=== PATIENT | female | born 1950 | race Caucasian/White ===

== ENCOUNTER → 2016-12-07 | Outpatient (CLI) | payer MEDICARE, BC ==
--- NOTE | 2016-12-07 11:54 | MM ---
Reason for exam: screening (asymptomatic). Last mammogram was performed 1 year and 11 months ago. History: Patient is postmenopausal. Took hormonal contraceptives for 10 years. Physical Findings: A clinical breast exam by your physician is recommended on an annual basis and results should be correlated with mammographic findings. MG Screening Mammo w CAD Bilateral CC and MLO view(s) were taken. Prior study comparison: December 31, 2014, bilateral MG screening mammo w CAD. January 15, 2013, bilateral digital screening mammo w/CAD. The breast tissue is almost entirely fat. Asymmetric breast tissue in the left MLO view only. This finding is changed when compared with previous exams. ASSESSMENT: Incomplete: need additional imaging evaluation, BI-RAD 0 RECOMMENDATION: Special view mammogram of the left breast. If lesion persists on supplemental views, image directed ultrasound is recommended. [facility] will attempt to contact patient to return for supplemental views and ultrasound if indicated.
== END | disposition home or self-care (01) ==
LOC: RADMAMWWP 10:41
PROVIDERS: ATTEND Obstetrics & Gynecology
DX: Z12.31 Encounter for screening mammogram for malignant neoplasm of breast (principal)

== ENCOUNTER → 2016-12-17 | Outpatient (CLI) | payer MEDICARE, BC ==
--- NOTE | 2016-12-17 14:34 | MM ---
Reason for exam: additional evaluation requested from abnormal screening. Last mammogram was performed less than 1 month ago. History: Patient is postmenopausal. Took hormonal contraceptives for 10 years. Physical Findings: Nurse did not find any significant physical abnormalities on exam. MG Work Up Mamm w CAD LT ML, spot compression CC, and spot compression MLO view(s) were taken of the left breast. Prior study comparison: December 07, 2016, bilateral MG screening mammo w CAD. December 31, 2014, bilateral MG screening mammo w CAD. The breast tissue is almost entirely fat. There is no discrete abnormality including area of concern. No significant new findings when compared with previous films. These results were verbally communicated with the patient and result sheet given to the patient on 12/17/16. ASSESSMENT: Benign, BI-RAD 2 RECOMMENDATION: Routine screening mammogram of both breasts in 1 year.
== END | disposition home or self-care (01) ==
LOC: RADMAMWWP 13:26
PROVIDERS: ATTEND Obstetrics & Gynecology
DX: R92.8 Other abnormal and inconclusive findings on diagnostic imaging of breast (principal)

== ENCOUNTER → 2019-04-03 | Outpatient (CLI) | payer MEDICARE ==
--- NOTE | 2019-04-04 12:04 | MM ---
Reason for exam: screening (asymptomatic). Last mammogram was performed 2 years and 3 months ago. History: Patient is postmenopausal. Took hormonal contraceptives for 10 years. Physical Findings: A clinical breast exam by your physician is recommended on an annual basis and results should be correlated with mammographic findings. MG Screening Mammo w CAD Bilateral CC and MLO view(s) were taken. Prior study comparison: December 17, 2016, left breast MG work up mamm w CAD LT. December 07, 2016, bilateral MG screening mammo w CAD. There are scattered fibroglandular densities. There is no discrete abnormality. ASSESSMENT: Negative, BI-RAD 1 RECOMMENDATION: Routine screening mammogram of both breasts in 1 year.
== END | disposition home or self-care (01) ==
LOC: RADMAMWWP 09:47
PROVIDERS: ATTEND Obstetrics & Gynecology
DX: Z12.31 Encounter for screening mammogram for malignant neoplasm of breast (principal)
CPT/HCPCS: 77067

== ENCOUNTER 2020-01-01 08:05 | Day surgery (SDC) | payer MEDICARE ==
[~2020-01-01 08:05] MED LIST: LACTATED RINGERS 1,000 ML IV SCH
[2020-01-01 08:34] VITALS: TEMP 98.3
[2020-01-01] MEDS ORDERED: LIDOCAINE 1% (10MG/ML) FOR IV START INTRADERMA ONE (08:35)
[2020-01-01] MEDS ORDERED: PROPOFOL 10 MG/ML 20 ML VIAL IV ONE (09:05)
--- NOTE | 2020-01-01 09:07 | P.GSHP ---
History of Present Illness H&P Date: 01/01/20 Chief Complaint: Colon cancer screening Patient here today for colonoscopy. Last colonoscopy 10 years ago. No bowel complaints. No family history of colon cancer. Past Medical History Past Medical History: Hyperlipidemia, Hypertension, Osteoarthritis (OA), Syncope Additional Past Medical History / Comment(s): RECENTLY HAVING INJECTIONS IN HER RIGHT KNEE (KARADIMAS). History of Any Multi-Drug Resistant Organisms: None Reported Past Surgical History: Section, Tubal Ligation Past Psychological History: No Psychological Hx Reported Smoking Status: Never smoker Past Alcohol Use History: None Reported Past Drug Use History: None Reported Medications and Allergies Home Medications Medication Instructions Recorded Confirmed Type Albuterol Inhaler (Mhu) [Ventolin 1 - 2 puff INHALATION Q4-6H PRN #1 12/14/13 01/01/20 Rx Hfa Inhaler (Mhu)] inhaler Loratadine [Claritin] 10 mg PO DAILY 12/14/13 01/01/20 History [place] Oil/Beryl-3 Fatty Acids 1 each PO DAILY 12/14/13 01/01/20 History [Fish Oil 500 mg Softgel] Cholecalciferol [Vitamin D3 (25 1 tab PO DAILY 12/28/19 01/01/20 History Mcg = 1000 Iu)] Glucos Sul 2Kcl/MSM/Chond/C/Mn 1 cap PO DAILY 12/28/19 01/01/20 History [Glucosamine Chondroitin Cap] Metoprolol Succinate (ER) [Toprol 100 mg PO HS 12/28/19 01/01/20 History XL] Rosuvastatin Calcium 10 mg PO HS 12/28/19 01/01/20 History Allergies Allergy/AdvReac Type Severity Reaction Status Date / Time Iodinated Contrast Media Allergy SKIN FELT Verified 01/01/20 08:27 "PRICKLY" meloxicam Allergy Itching Verified 01/01/20 08:27 rubella and mumps live virus Allergy Rash/Hives Verified 01/01/20 08:27 vaccin [From Biavax II] Sulfa (Sulfonamide Allergy Rash/Hives Verified 01/01/20 08:27 Antibiotics) Yeast Allergy CONGESTION Verified 01/01/20 08:27 ibuprofen AdvReac Rash/Hives Verified 01/01/20 08:27 montelukast [From Singulair] AdvReac Rash/Hives Verified 01/01/20 08:27 Surgical - Exam Vital Signs Temp Pulse Resp BP Pulse Ox 98.3 F 67 16 161/76 94 L 01/01/20 08:33 01/01/20 08:33 01/01/20 08:33 01/01/20 08:33 01/01/20 08:33 Physical exam: General: Well-developed, well-nourished HEENT: Normocephalic, sclerae nonicteric Abdomen: Nontender, nondistended Extremities: No edema Neuro: Alert and oriented Assessment and Plan (1) Colon cancer screening Narrative/Plan: Will proceed with colonoscopy Current Visit: Yes Status: Acute Code(s): Z12.11 - ENCOUNTER FOR SCREENING FOR MALIGNANT NEOPLASM OF COLON SNOMED Code(s): 098148185
--- NOTE | 2020-01-01 09:25 | P.PCN ---
Date of Procedure: 01/01/20 Procedure(s) Performed: PREOPERATIVE DIAGNOSIS: Colon cancer screening POSTOPERATIVE DIAGNOSIS: Normal exam PROCEDURE: Colonoscopy ANESTHESIA: MAC SURGEON: Bradly Truong M.D. SPECIMENS: None ENDOSCOPIC PROCEDURE: The patient was placed on the endoscopy table in the left decubitus position. The Olympus colonoscope was inserted into the anus and passed under direct visualization to the base of the cecum. The appendiceal orifice was visualized. From that point the scope was slowly withdrawn inspecti ng all surfaces carefully. There were no neoplastic inflammatory or polypoid lesions throughout the cecum, ascending, transverse, descending, sigmoid and rectum. There was no visible diverticulosis noted. Digital rectal examination was normal. The patient was taken to the recovery room in stable condition per anesthesia guidelines. RECOMMENDATIONS: Increase fiber. Follow-up colonoscopy in 10 years.
[2020-01-01 10:01] VITALS: BP 159/69; PULSE 54; RESP 16
== END 2020-01-01 10:12 | disposition home or self-care (01) ==
LOC: ORWHC2ENDO 08:05
PROVIDERS: ATTEND Surgery
DX: Z12.11 Encounter for screening for malignant neoplasm of colon (principal); I10 Essential (primary) hypertension; E78.5 Hyperlipidemia, unspecified; M19.90 Unspecified osteoarthritis, unspecified site; Z88.2 Allergy status to sulfonamides; Z88.6 Allergy status to analgesic agent; Z88.7 Allergy status to serum and vaccine; Z88.8 Allergy status to other drugs, medicaments and biological substances; Z98.51 Tubal ligation status; Z79.899 Other long term (current) drug therapy; Z98.891 History of uterine scar from previous surgery
CPT/HCPCS: J2704; G0121

== ENCOUNTER → 2020-05-27 | Outpatient (CLI) | payer MEDICARE | END | disposition home or self-care (01) | LOC: LABPAT 09:54 | PROVIDERS: ATTEND Orthopaedic Surgery | DX: M17.11 Unilateral primary osteoarthritis, right knee (principal); Z22.322 Carrier or suspected carrier of Methicillin resistant Staphylococcus aureus | CPT/HCPCS: 87070 ==

== ENCOUNTER 2020-06-16 08:00 | Day surgery (SDC) | payer MEDICARE ==
[2020-06-11 12:55] VITALS: BMI 27.0
--- NOTE | 2020-06-15 13:14 | HP ---
HISTORY AND PHYSICAL REASON FOR ADMISSION: Surgery scheduled for 06/16/2020 Chanel Yeager is a 78-year-old patient seen with symptomatic right knee osteoarthritis. We discussed options for treatment. She elected to proceed with right total knee arthroplasty. Consent was obtained. Clearance was provided by Dr. Eben Moreira. PAST MEDICAL HISTORY: Asthma, hypertension, hyperlipidemia. PAST SURGICAL HISTORY: section. MEDICATIONS: Metoprolol, Rosuvastatin, Loratadine. ALLERGIES: ARE MOTRIN, SULFA, BIAXIN, MOBIC, NAPROSYN, AZITHROMYCIN, LISINOPRIL, SINGULAR. SOCIAL HISTORY: She denies tobacco use. PHYSICAL EXAMINATION: Evaluation of the right knee: Range of motion is 0-135. Tenderness medial joint line. Crepitus medial patellofemoral compartments with range of motion. Pain with patellofemoral compression. Ligaments stable. Hip rotation without pain. Distal neurovascular exam is intact. RADIOGRAPHS: Radiographs of the right knee revealed severe osteoarthritic changes. IMPRESSION: 1. Right knee osteoarthritis. 2. Hypertension. 3. Hyperlipidemia. PLAN: Right total knee arthroplasty. Surgery scheduled 06/16/2020. MMODL / IJN: [id number] /
[~2020-06-16 08:00] MED LIST changes: +ACETAMINOPHEN TAB 500 MG TAB PO PRN; +DEXAMETHASONE SOD PHOSPHATE 4 MG/ML 1 ML VIAL IV ONE; +HYDROmorphone 0.5 MG/0.5 ML SYRINGE IVP PRN; +LIDOCAINE 1% (10MG/ML) FOR IV START INTRADERMA PRN; +MELOXICAM 7.5 MG TAB PO PRN; +MIDAZOLAM 2 MG/2 ML VIAL IV PRN; +ONDANSETRON 4 MG/2 ML VIAL IVP ONE; +ROPIVACAINE/EPI/CLONIDINE/KET 50 ML SYRINGE MISCELLANE PRN; +TRANEXAMIC ACID 1,000 MG in SODIUM CHLORIDE 0.9% 100 ML IVPB PRN; +fentaNYL (PF) 50 MCG/ML 2 ML AMP IVP PRN
[2020-06-16] MEDS ORDERED: ONDANSETRON 4 MG/2 ML VIAL ONE (08:45)
[2020-06-16] MEDS ORDERED: DEXAMETHASONE SOD PHOSPHATE 4 MG/ML 1 ML VIAL IVP ONE (08:51)
[2020-06-16] MEDS ORDERED: MIDAZOLAM 2 MG/2 ML VIAL IVP ONE (09:09)
[2020-06-16] MEDS ORDERED: ROPIVACAINE 0.2%-NS ON-Q PUMP 1,090 MG, EMPTY PAIN BALL 1 EACH MISCELLANE PRN (09:32)
--- NOTE | 2020-06-16 09:33 | P.ANPRN ---
Procedure Note - Anesthesia - Nerve Block Performed Right Adductor Canal Time Out Performed: Yes (:) Date of Procedure: 06/16/20 Procedure Start Time: Procedure Stop Time: Location of Patient: PreOp Indication: Acute Post-Operative Pain, Requested by Surgeon (Dr Camacho) Sedation Type: Sedate with meaningful contact maintained Preparation: Sterile Prep, Sterile Dressing Position: Supine Catheter: Indwelling Needle Types: Pajunk Needle Gauge: 21 Ultrasound used to visualize needle placement: Yes Ultrasound used to observe medication spread: Yes Injectate: 0.5% Ropivacaine (see comment for volume) (20cc) Blood Aspirated: No Pain Paresthesia on Injection Noted: No Resistance on Injection: Normal Image Stored and Saved: Yes Events: Uneventful and Well Tolerated
[2020-06-16] MEDS ORDERED: fentaNYL (PF) 50 MCG/ML 2 ML AMP ONE (09:47)
[2020-06-16] MEDS ORDERED: PROPOFOL 10 MG/ML 20 ML VIAL IV ONE (09:47)
[2020-06-16] MEDS ORDERED: SUCCINYLCHOLINE CHLORIDE 100 MG/5 ML SYR IV ONE (09:47)
[2020-06-16] MEDS ORDERED: SODIUM CHLORIDE 0.9% 100 ML BAG ONE (09:47)
[2020-06-16] MEDS ORDERED: LIDOCAINE 1% INJ 10MG/ML (20 ML MDV) ONE (09:47)
[2020-06-16] MEDS ORDERED: TRANEXAMIC ACID 1,000 MG/10 ML VIAL ONE (09:47)
[2020-06-16] MEDS ORDERED: MIDAZOLAM 2 MG/2 ML VIAL ONE (09:47)
[2020-06-16] MEDS ORDERED: LACTATED RINGERS 1,000 ML IV ONE (11:26)
[2020-06-16] MEDS ORDERED: HYDROmorphone 0.2 MG/1 ML SYRINGE IVP PRN (11:26)
[2020-06-16] MEDS ORDERED: ONDANSETRON 4 MG/2 ML VIAL IVP PRN (11:26)
[2020-06-16] MEDS ORDERED: HYDROmorphone 0.5 MG/0.5 ML SYRINGE IVP PRN ×2 (11:26)
[2020-06-16] MEDS ORDERED: NALOXONE 0.4 MG/ML 1 ML VIAL IV PRN (11:26)
[2020-06-16] MEDS ORDERED: HYDROcodone/APAP 5-325MG 1 EACH TAB PO PRN ×2 (11:26)
--- NOTE | 2020-06-16 11:26 | P.OP ---
Date of Procedure: 06/16/20 Preoperative Diagnosis: Right knee osteoarthritis Postoperative Diagnosis: Right knee osteoarthritis Procedure(s) Performed: Right total knee arthroplasty Implants: 1. Depuy attune size 4 right standard cruciate retaining cemented femur 2. Depuy attune size 3 fixed bearing cemented tibial baseplate 3. Depuy attune size 4 fixed bearing cruciate retaining 8 mm polyethylene tibial insert 4. Depuy attune 35 mm all polyethylene cemented patella Anesthesia: GETA, regional (Adductor canal catheter), local Surgeon: Maxwell Camacho Ip/Mosaic Technician #1: Kenroy Reeves Estimated Blood Loss (ml): 50 Pathology: other (Bone) Condition: stable Disposition: PACU Indications for Procedure: 70-year-old patient seen with symptomatic right knee osteoarthritis. After having treatment options discussed, she elected to proceed with total knee arthroplasty. Operative Findings: see description of procedure Description of Procedure: Patient was taken to the operative suite after having an adductor canal catheter placed by the department of anesthesia. Patient underwent a general anesthetic by the department of anesthesia. Patient was given preoperative IV intake antibiotics and TXA. A well-padded tourniquet was placed about the right lower extremity. The lower extremity was then prepped and draped in the normal sterile orthopedic fashion. The extremity was elevated, a tourniquet was insufflated to 300. A standard anterior incision was made sharply through skin. Dissection was taken down through the subcutaneous soft tissues down to the extensor mechanism. A medial arthrotomy was performed, patella was everted and knee was flexed. There was advanced osteoarthritis noted. I introduced my distal intramedullary femoral drill. I then introduced the distal femoral cutting jig. Aime BOWER secured the cutting jig with 2 pins. I held retractors in position while Aime BOWER performed the distal femoral resection through the guide area we now removed her distal femoral cutting guide. We now placed our 4-in-1 femoral cutting block and positioned and it was secured with 2 pins by Aime BOWER while I held the block in position. The distal femoral finishing was now completed. A proximal tibial cutting guide was positioned. I held the guide in the appropriate position with both hands well Aime BOWER inserted stabilizing pins into the guide. Proximal tibial cut was made. We now placed a trial femoral component into position, along with an appropriate size tibial tray and insert. We now took the knee through range of motion and had full extension good flexion and good overall soft tissue balance noted. The patella was everted and stabilized with 2 towel clips held by Aime BOWER while I performed a flush with patellar quad tendon utilizing a fresh sawblade. We templated the patella, appropriate drill holes were made. An appropriate trial patella was positioned, knee was taken through full range of motion with the patella tracking very nicely. The trial patella was removed. Drill holes were made through the femoral component. All trial components were removed after marking off the appropriate rotation of the tibia. Retractors were now positioned along the proximal tibia. An appropriate keel punch was made with the appropriate size tibial guide by myself on Aime BOWER assisted by holding retractors. At this point appropriate size implants were chosen and opened. The joint was irrigated copiously with pulse lavage mechanical irrigation. The posterior capsule was infiltrated with local analgesic. The wo und was irrigated with pulse lavage mechanical irrigation. We mixed antibiotic methylmethacrylate. We placed the knee into flexion. We placed multiple retractors assisted by Aime BOWER to expose the proximal tibia. Once the methyl methacrylate was ready, the tibial component was cemented into place removing any excess methylmethacrylate form by both myself and Aime BOWER. The femoral component was cemented into place removing the removing any excess methylmethacrylate performed by both myself and Aime BOWER. We then inserted the appropriate size polyethylene tibial insert. We made sure that it was locked into position. We took the knee into full extension, and then back in a flexion making sure we had removed any excess methylmethacrylate. The patellar component was then cemented down and secured with clamp. Excess methylmethacrylate removed. We kept the knee in full extension, patellar clamp in position until methylmethacrylate had hardened. Once it had hardened the patellar clamp was removed. The knee was taken through full range of motion. The patella tracked nicely. There was good soft tissue balancing. The tourniquet was now released. Additional hemostasis was achieved via electrocautery. A second gram of TXA was given. The wound again was irrigated with pulse lavage mechanical irrigation. The superficial soft tissues were infiltrated local analgesic. The extensor mechanism was repaired with Vicryl. We checked the repair with range of motion and it was stable. The subcutaneous soft tissues were repaired with Vicryl in layers. The skin was approximated with pernio/Dermabond. Sterile dressings were applied followed by loose web roll and Dustin bandage. The patient was transferred to a bed, and taken to recovery in stable and satisfactory condition. Aime BOWER assisted with this complex procedure.
[2020-06-16 12:01] VITALS: TEMP 98.6
[2020-06-16] MEDS ORDERED: HYDROmorphone 0.5 MG/0.5 ML SYRINGE IVP ONE (12:39)
--- NOTE | 2020-06-16 12:39 | XR ---
EXAMINATION TYPE: XR knee limited RT DATE OF EXAM: 06/16/2020 COMPARISON: NONE TECHNIQUE: Two views submitted HISTORY: Post op FINDINGS: There is a prosthetic knee in near anatomic alignment. There is soft tissue edema and emphysema. IMPRESSION: 1. Postoperative change. Appears in near-anatomic alignment
[2020-06-16 13:44] VITALS: RESP 20
[2020-06-16 16:10] VITALS: BP 138/78; PULSE 82
== END 2020-06-16 17:40 | disposition home health service (06) ==
LOC: OR 08:00
PROVIDERS: ATTEND Orthopaedic Surgery
DX: M17.11 Unilateral primary osteoarthritis, right knee (principal); I10 Essential (primary) hypertension; J45.909 Unspecified asthma, uncomplicated; E78.5 Hyperlipidemia, unspecified; Z98.891 History of uterine scar from previous surgery; Z79.899 Other long term (current) drug therapy; Z88.2 Allergy status to sulfonamides; Z88.1 Allergy status to other antibiotic agents; Z88.6 Allergy status to analgesic agent; Z88.8 Allergy status to other drugs, medicaments and biological substances; Z91.048 Other nonmedicinal substance allergy status
CPT/HCPCS: 97116; 97161; 64448; 76942; 88300; 73560; 27447; C1776; C1713; J2250; J1100; J0690; J2405; J2001; J3010; J0330; J2704; J1170; J2795

== ENCOUNTER 2020-06-17 10:28 | Emergency (ER) | payer MEDICARE ==
[2020-06-17 10:53] VITALS: TEMP 98.7
[2020-06-17] MEDS ORDERED: SODIUM CHLORIDE 0.9% 500 ML 500 ML IV STA (11:13)
[2020-06-17] MEDS ORDERED: diphenhydrAMINE 50 MG/ML 1 ML VIAL IVP STA (11:16)
--- NOTE | 2020-06-17 11:27 | ED ---
General Adult HPI - General Chief complaint: Shortness of Breath Stated complaint: Poss Medication Reaction Time Seen by Provider: 06/17/20 11:00 Source: patient, RN notes reviewed Mode of arrival: ambulatory Limitations: no limitations - History of Present Illness Initial comments: 70-year-old female with a past medical history of hyperlipidemia, hypertension presents to the emergency room for a chief complaint of shortness of breath. Patient reports that this happened around 9:30 this morning. States it was a sudden onset. Patient states it was approximately 30 minutes after taking [place]. Patient did have a knee replacement yesterday and did not have any complications with this. Patient was intubated and had regional anesthesia as well. Patient denies any chest pain. Patient reports she has had similar episodes in the past when she was ALLERGIC to smoke. She uses an inhaler for this. She does not feel short of breath at this time but states she is "breathing weird."Patient has no other complaints at this time including shortness of breath, chest pain, abdominal pain, nausea or vomiting, headache, or visual changes. - Related Data Home Medications Medication Instructions Recorded Confirmed Loratadine [Claritin] 10 mg PO QAM 12/14/13 06/17/20 [place] Oil/[place]-3 Fatty Acids 1 cap PO DAILY 12/14/13 06/17/20 [Fish Oil 500 mg Softgel] Glucos Sul 2Kcl/MSM/Chond/C/Mn 1 cap PO DAILY 12/28/19 06/17/20 [Glucosamine Chondroitin Cap] Metoprolol Succinate (ER) [Toprol 100 mg PO HS 12/28/19 06/17/20 XL] Rosuvastatin Calcium 10 mg PO HS 12/28/19 06/17/20 Vitamin C/Biotin [Hair, Skin and 1 tab PO DAILY 06/11/20 06/17/20 Nails] Albuterol Sulfate [Albuterol 1 - 2 puff PO RT-Q4H PRN 06/17/20 06/17/20 Sulfate Hfa] HYDROcodone/APAP 7.5-325MG [[place] 1 - 2 tab PO Q6HR PRN 06/17/20 06/17/20 7.5] Previous Rx's Medication Instructions Recorded Aspirin [Adult Low Dose Aspirin EC] 81 mg PO BID #60 tablet. 06/16/20 Docusate [Colace] 100 mg PO DAILY #30 capsule 06/16/20 Allergies Allergy/AdvReac Type Severity Reaction Status Date / Time azithromycin Allergy Rash/Hives Verified 06/17/20 12:28 clarithromycin [From Biaxin] Allergy Rash/Hives Verified 06/17/20 12:28 ibuprofen Allergy Rash/Hives Verified 06/17/20 12:28 Iodinated Contrast Media Allergy SKIN FELT Verified 06/17/20 12:28 "PRICKLY" meloxicam Allergy Itching Verified 06/17/20 12:28 montelukast [From Singulair] Allergy Rash/Hives Verified 06/17/20 12:28 Sulfa (Sulfonamide Allergy Rash/Hives Verified 06/17/20 12:28 Antibiotics) lisinopril AdvReac headache/it Verified 06/17/20 12:28 alycia Yeast AdvReac CONGESTION Verified 06/17/20 12:28 Review of Systems ROS Statement: Those systems with pertinent positive or pertinent negative responses have been documented in the HPI. ROS Other: All systems not noted in ROS Statement are negative. Past Medical History Past Medical History: Hyperlipidemia, Hypertension History of Any Multi-Drug Resistant Organisms: None Reported Past Surgical History: Section Past Psychological History: No Psychological Hx Reported Smoking Status: Never smoker Past Alcohol Use History: None Reported Past Drug Use History: None Reported General Exam Limitations: no limitations Course Vital Signs 06/17/20 06/17/20 10:47 11:47 Temperature 98.7 F Pulse Rate 62 72 Respiratory 18 18 Rate Blood Pressure 107/42 122/55 O2 Sat by Pulse 100 100 Oximetry EKG Findings - EKG Comments: EKG Findings:: Normal sinus rhythm, ventricular rate 61, CO interval 146, QTC 410 Medical Decision Making - Medical Decision Making Delay in care when dimer was not related or resulted by lab Vitals are stable. Patient is well-appearing. She does not have any respiratory distress. EKG shows a normal sinus rhythm. CBC is unremarkable. CMP unremarkable. D-dimer is elevated at 3.69. Likely secondary to surgery however given history of shortness of breath CT chest angio was ordered. This showed no evidence for pulmonary embolus or acute pulmonary process. There was a possible 1.4 cm right thyroid lobe nodule that patient will have a nonemergent ultrasound for outpatient. This was discussed with patient. It is possible the patient had an ALLERGIC reaction to hydrocodone. As this started 30 minutes after she took it. We request that she discontinue this at this time. She requests something else for pain. We will try Tylenol 3. Patient reevaluated and is asymptomatic at this time.Recommended if she has any other shortness of breath or worsening symptoms she return to the emergency room. I discussed this case with attending Dr. Ramires who agrees with this assessment and treatment plan. - Lab Data Result diagrams: 06/17/20 11:40 06/17/20 11:40 Lab Results 06/17/20 06/17/20 06/17/20 Range/Units 11:40 11:40 11:40 WBC 9.7 (3.8-10.6) k/uL RBC 4.26 (3.80-5.40) m/uL Hgb 12.3 (11.4-16.0) gm/dL Hct 35.5 (34.0-46.0) % MCV 83.4 (80.0-100.0) fL MCH 28.9 (25.0-35.0) pg MCHC 34.6 (31.0-37.0) g/dL RDW 13.4 (11.5-15.5) % Plt Count 179 (150-450) k/uL MPV 6.5 Neutrophils % 78 % Lymphocytes % 11 % Monocytes % 8 % Eosinophils % 0 % Basophils % 0 % Neutrophils # 7.6 (1.3-7.7) k/uL Lymphocytes # 1.0 (1.0-4.8) k/uL Monocytes # 0.8 (0-1.0) k/uL Eosinophils # 0.0 (0-0.7) k/uL Basophils # 0.0 (0-0.2) k/uL PT 10.4 (9.0-12.0) sec INR 1.0 (<1.2) APTT 20.8 L (22.0-30.0) sec D-Dimer 3.69 H (<0.60) mg/L FEU Sodium 136 L (137-145) mmol/L Potassium 3.8 (3.5-5.1) mmol/L Chloride 105 (98-107) mmol/L Carbon Dioxide 26 (22-30) mmol/L Anion Gap 5 mmol/L BUN 20 H (7-17) mg/dL Creatinine 1.03 (0.52-1.04) mg/dL Est GFR (CKD-EPI)AfAm 64 (>60 ml/min/1.73 sqM) Est GFR (CKD-EPI)NonAf 55 (>60 ml/min/1.73 sqM) Glucose 104 H (74-99) mg/dL Calcium 9.0 (8.4-10.2) mg/dL Magnesium 1.9 (1.6-2.3) mg/dL Total Bilirubin 0.8 (0.2-1.3) mg/dL AST 31 (14-36) U/L ALT 18 (4-34) U/L Alkaline Phosphatase 63 (38-126) U/L Troponin I (0.000-0.034) ng/mL NT-Pro-B Natriuret Pep pg/mL Total Protein 6.3 (6.3-8.2) g/dL Albumin 3.5 (3.5-5.0) g/dL Coronavirus (PCR) (Not Detectd) 06/17/20 06/17/20 06/17/20 Range/Units 11:40 11:40 11:40 WBC (3.8-10.6) k/uL RBC (3.80-5.40) m/uL Hgb (11.4-16.0) gm/dL Hct (34.0-46.0) % MCV (80.0-100.0) fL MCH (25.0-35.0) pg MCHC (31.0-37.0) g/dL RDW (11.5-15.5) % Plt Count (150-450) k/uL MPV Neutrophils % % Lymphocytes % % Monocytes % % Eosinophils % % Basophils % % Neutrophils # (1.3-7.7) k/uL Lymphocytes # (1.0-4.8) k/uL Monocytes # (0-1.0) k/uL Eosinophils # (0-0.7) k/uL Basophils # (0-0.2) k/uL PT (9.0-12.0) sec INR (<1.2) APTT (22.0-30.0) sec D-Dimer (<0.60) mg/L FEU Sodium (137-145) mmol/L Potassium (3.5-5.1) mmol/L Chloride (98-107) mmol/L Carbon Dioxide (22-30) mmol/L Anion Gap mmol/L BUN (7-17) mg/dL Creatinine (0.52-1.04) mg/dL Est GFR (CKD-EPI)AfAm (>60 ml/min/1.73 sqM) Est GFR (CKD-EPI)NonAf (>60 ml/min/1.73 sqM) Glucose (74-99) mg/dL Calcium (8.4-10.2) mg/dL Magnesium (1.6-2.3) mg/dL Total Bilirubin (0.2-1.3) mg/dL AST (14-36) U/L ALT (4-34) U/L Alkaline Phosphatase (38-126) U/L Troponin I <0.012 (0.000-0.034) ng/mL NT-Pro-B Natriuret Pep 550 pg/mL Total Protein (6.3-8.2) g/dL Albumin (3.5-5.0) g/dL Coronavirus (PCR) Not Detected (Not Detectd) Disposition Clinical Impression: Shortness of breath, Thyroid nodule Disposition: HOME SELF-CARE Condition: Good Instructions (If sedation given, give patient instructions): Shortness of Breath (ED) Additional Instructions: Please discontinue [place] and continue Tylenol 3 instead. If this causes any shortness of breath return to the emergency room. Otherwise follow-up with your doctor in one to 2 days. Please also follow up with primary care to discuss thyroid nodule found on computed tomography scan. You should have ultrasound of this outpatient. Is patient prescribed a controlled substance at d/c from ED?: No Referrals: Eben Moreira DO [Primary Care Provider] - 1-2 days Time of Disposition: 15:22
--- NOTE | 2020-06-17 11:36 | XR ---
EXAMINATION TYPE: XR chest 2V DATE OF EXAM: 06/17/2020 COMPARISON: 12/14/2013 HISTORY: 70 year-old female shortness of breath, difficulty breathing TECHNIQUE: AP and lateral views FINDINGS: The cardiomediastinal silhouette, aorta, and pulmonary vasculature are within normal limits. Hazy den sities are related to overlying soft tissue and portable technique. No consolidation or pleural effus ion. IMPRESSION: No acute cardiopulmonary process.
[2020-06-17 12:04] LABS: Basophils % (A) 0 %; Eosinophils % (A) 0 %; HCT 35.5 % (34.0-46.0); HGB 12.3 gm/dL (11.4-16.0); Lymphocytes % (A) 11 %; MCH 28.9 pg (25.0-35.0); MCHC 34.6 g/dL (31.0-37.0); MCV 83.4 fL (80.0-100.0); Mean Platelet Volume 6.5; Monocytes # (A) 0.8 k/uL (0-1.0); Monocytes % (A) 8 %; Neutrophils # (A) 7.6 k/uL (1.3-7.7); Neutrophils % (A) 78 %; Platelet Count 179 k/uL (150-450); RBC 4.26 m/uL (3.80-5.40); RDW 13.4 % (11.5-15.5); WBC 9.7 k/uL (3.8-10.6)
[2020-06-17 12:26] LABS: Albumin 3.5 g/dL (3.5-5.0); Magnesium 1.9 mg/dL (1.6-2.3); Potassium 3.8 mmol/L (3.5-5.1); Total Bilirubin 0.8 mg/dL (0.2-1.3); Total Protein 6.3 g/dL (6.3-8.2)
[2020-06-17 12:54] LABS: Prothrombin Time 10.4 sec (9.0-12.0)
[2020-06-17 13:06] LABS: Partial Thromboplastin Time 20.8 sec (22.0-30.0)
[2020-06-17] MEDS ORDERED: methylPREDNISolone SOD SUCCI 125 MG/2 ML VIAL IV STA (13:29)
[2020-06-17] MEDS ORDERED: FAMOTIDINE 20 MG/2 ML VIAL IV STA (13:29)
--- NOTE | 2020-06-17 14:57 | CT ---
EXAMINATION TYPE: CT chest angio for PE DATE OF EXAM: 06/17/2020 COMPARISON: Radiograph same day HISTORY: 70-year-old female SOB TECHNIQUE: Contiguous axial scanning of the chest performed without and with IV Contrast, patient inj ected with 100 ml mL of Isovue 370. Coronal/sagittal MIP reconstructions performed. CT DLP: 282.5 mGycm Automated exposure control for dose reduction was used. FINDINGS: Possible underlying 1.4 cm right thyroid lobe nodule. Dedicated thyroid ultrasound to further evaluat e. Heart upper limits of normal in size without pericardial effusion. No flattening of the interventricu lar septum or reflux of contrast into the hepatic veins. Aorta normal caliber with mild atherosclerotic arch calcifications and conventional arch vessel branc vignesh anatomy. No thoracic lymphadenopathy by CT size criteria. Satisfactory opacification of the pulmonary arterial system without evidence for pulmonary embolus. No consolidation or pleural effusion. Some streaky atelectasis at the lung bases. Small hiatal hernia. Visualized upper abdomen otherwise shows a small hilar splenule. Bones: Mild degenerative disc disease mid to lower thoracic spine. IMPRESSION: 1. NO EVIDENCE FOR PULMONARY EMBOLUS OR ACUTE PULMONARY PROCESS. 2. SMALL HIATAL HERNIA. 3. POSSIBLE 1.4 CM RIGHT THYROID LOBE NODULE. NONEMERGENT OUTPATIENT THYROID ULTRASOUND RECOMMENDED T O FURTHER EVALUATE.
[2020-06-17] MEDS ORDERED: ACET/COD 300 MG/30 MG STARTER PACK 6 TAB BTL PO STA (15:29)
[2020-06-17 15:37] VITALS: BP 140/62; PULSE 70; RESP 16
== END 2020-06-17 15:49 | disposition home or self-care (01) ==
LOC: EC 10:28
DX: R06.02 Shortness of breath (principal); E04.1 Nontoxic single thyroid nodule; E78.5 Hyperlipidemia, unspecified; I10 Essential (primary) hypertension; Z20.822 Contact with and (suspected) exposure to COVID-19; Z79.899 Other long term (current) drug therapy; Z88.1 Allergy status to other antibiotic agents; Z88.2 Allergy status to sulfonamides; Z88.6 Allergy status to analgesic agent; Z88.8 Allergy status to other drugs, medicaments and biological substances; Z91.048 Other nonmedicinal substance allergy status; Z96.651 Presence of right artificial knee joint
CPT/HCPCS: 99285; 96374; 96375 ×2; 36415; 93005; 85379; 83880; 80053; 83735; 84484; 85025; 85610; 85730; 87635; 71046; 71275; J1200; J2930; Q9967

== ENCOUNTER 2020-07-10 01:33 | Observation (INO) | payer MEDICARE ==
[2020-07-10] MEDS ORDERED: SODIUM CHLORIDE 0.9% 500 ML 500 ML IV STA (01:46)
[2020-07-10] MEDS ORDERED: SODIUM CHLORIDE 0.9% 1,000 ML IV STA (01:46)
--- NOTE | 2020-07-10 01:50 | ED ---
Chest Pain HPI - General Chief Complaint: Chest Pain Stated Complaint: Chest pain Time Seen by Provider: 07/10/20 01:46 Source: patient, family, RN notes reviewed, old records reviewed Mode of arrival: ambulatory Limitations: no limitations - History of Present Illness Initial Comments: This is a 70-year-old female DF for evaluation patient with recent knee surgery coming in for chest pain today. Course patient is concern for possibility of pulmonary embolism. Heart is racing and she feels short of breath. Patient does admit to chest pain. Patient is not on anticoagulation. No other complaints no recent fevers nausea no vomiting of travel history, other than surgery no other new changes in medications. MD Complaint: chest pain, other (Recent surgery, knee replacement) Onset: during rest, during exertion Pain Location: substernal Severity: moderate Severity scale (1-10): 5 Quality: tightness Consistency: constant Improves With: nothing Worsens With: nothing Anginal Symptoms: diaphoresis, dyspnea Other Symptoms: palpitations Treatments Prior to Arrival: none - Related Data Home Medications Medication Instructions Recorded Confirmed Loratadine [Claritin] 10 mg PO QAM 12/14/13 07/10/20 [place] Oil/[place]-3 Fatty Acids 1 cap PO DAILY 12/14/13 07/10/20 [Fish Oil 500 mg Softgel] Glucos Sul 2Kcl/MSM/Chond/C/Mn 1 cap PO DAILY 12/28/19 07/10/20 [Glucosamine Chondroitin Cap] Metoprolol Succinate (ER) [Toprol 100 mg PO HS 12/28/19 07/10/20 XL] Rosuvastatin Calcium 10 mg PO HS 12/28/19 07/10/20 Vitamin C/Biotin [Hair, Skin and 1 tab PO DAILY 06/11/20 07/10/20 Nails] Albuterol Sulfate [Albuterol 1 - 2 puff PO RT-Q4H PRN 06/17/20 07/10/20 Sulfate Hfa] Previous Rx's Medication Instructions Recorded Docusate [Colace] 100 mg PO DAILY #30 capsule 06/16/20 Apixaban [Eliquis] 5 mg PO BID #60 tab 07/10/20 Allergies Allergy/AdvReac Type Severity Reaction Status Date / Time azithromycin Allergy Rash/Hives Verified 07/10/20 06:25 clarithromycin [From Biaxin] Allergy Rash/Hives Verified 07/10/20 06:25 ibuprofen Allergy Rash/Hives Verified 07/10/20 06:25 Iodinated Contrast Media Allergy SKIN FELT Verified 07/10/20 06:25 "PRICKLY" meloxicam Allergy Itching Verified 07/10/20 06:25 montelukast [From Singulair] Allergy Rash/Hives Verified 07/10/20 06:25 Sulfa (Sulfonamide Allergy Rash/Hives Verified 07/10/20 06:25 Antibiotics) lisinopril AdvReac headache/it Verified 07/10/20 06:25 alycia Yeast AdvReac CONGESTION Verified 07/10/20 06:25 Review of Systems ROS Statement: Those systems with pertinent positive or pertinent negative responses have been documented in the HPI. ROS Other: All systems not noted in ROS Statement are negative. EKG Findings - EKG Comments: EKG Findings:: EKG shows A. fib 93, QRS 82 QTC 427 Past Medical History Past Medical History: Hyperlipidemia, Hypertension History of Any Multi-Drug Resistant Organisms: None Reported Past Surgical History: Section, Joint Replacement, Orthopedic Surgery Past Psychological History: No Psychological Hx Reported Smoking Status: Never smoker Past Alcohol Use History: None Reported Past Drug Use History: None Reported General Exam Limitations: no limitations General appearance: alert, in no apparent distress Head exam: Present: atraumatic, normocephalic, normal inspection Eye exam: Present: normal appearance, PERRL, EOMI. Absent: scleral icterus, conjunctival injection, periorbital swelling ENT exam: Present: normal exam, mucous membranes moist Neck exam: Present: normal inspection. Absent: tenderness, meningismus, lymphadenopathy Respiratory exam: Present: normal lung sounds bilaterally. Absent: respiratory distress, wheezes, rales, rhonchi, stridor Cardiovascular Exam: Present: tachycardia, irregular rhythm, normal heart sounds. Absent: systolic murmur, diastolic murmur, rubs, gallop, clicks GI/Abdominal exam: Present: soft, normal bowel sounds. Absent: distended, tenderness, guarding, rebound, rigid Extremities exam: Present: normal inspection, full ROM, normal capillary refill. Absent: tenderness, pedal edema, joint swelling, calf tenderness Back exam: Present: normal inspection Neurological exam: Present: alert, oriented X3, CN II-XII intact Psychiatric exam: Present: normal affect, normal mood Skin exam: Present: warm, dry, intact, normal color. Absent: rash Course Vital Signs 07/10/20 07/10/20 07/10/20 01:36 02:20 03:30 Temperature 98.8 F Pulse Rate 50 L 103 H 116 H Respiratory 22 20 18 Rate Blood Pressure 132/64 106/73 110/67 O2 Sat by Pulse 97 100 100 Oximetry 07/10/20 05:44 Temperature 98.3 F Pulse Rate 89 Respiratory 20 Rate Blood Pressure 140/67 O2 Sat by Pulse 99 Oximetry - Reevaluation(s) Reevaluation #1: Medical record is reviewed Patient symptoms are improved here in the emergency department Patient heart rate is improved. Patient's chest pain is persistent here in the ER Chest Pain MDM - MDM 70 female to the ER for evaluation patient Dese for evaluation of shortness of breath. Patient also having chest pain. CT chest is negative for acute disease patient has H a fibrillation with RVR will be admitted for cardiology to evaluate Critical Care Time Critical Care Time: Yes Total Critical Care Time: 31 Disposition Clinical Impression: Atrial fibrillation with RVR, Chest pain Disposition: ADMITTED IP TO THIS HOSP Condition: Good Is patient prescribed a controlled substance at d/c from ED?: No
[2020-07-10 02:09] LABS: Basophils # (A) 0.1 k/uL (0-0.2); Basophils % (A) 1 %; Eosinophils # (A) 0.4 k/uL (0-0.7); Eosinophils % (A) 4 %; HCT 36.4 % (34.0-46.0); HGB 12.3 gm/dL (11.4-16.0); Lymphocytes # (A) 1.2 k/uL (1.0-4.8); Lymphocytes % (A) 12 %; MCH 28.1 pg (25.0-35.0); MCHC 33.9 g/dL (31.0-37.0); MCV 82.9 fL (80.0-100.0); Mean Platelet Volume 6.3; Monocytes # (A) 0.6 k/uL (0-1.0); Monocytes % (A) 6 %; Neutrophils # (A) 7.3 k/uL (1.3-7.7); Neutrophils % (A) 76 %; Platelet Count 307 k/uL (150-450); RBC 4.39 m/uL (3.80-5.40); RDW 13.3 % (11.5-15.5); WBC 9.6 k/uL (3.8-10.6)
[2020-07-10 02:24] LABS: ALT 11 U/L (4-34); AST 19 U/L (14-36); African American GFR (CKD) >90 (>60 ml/min/1.73 sqM); Albumin 3.6 g/dL (3.5-5.0); Alkaline Phosphatase 76 U/L (38-126); Anion Gap 7 mmol/L; Blood Urea Nitrogen 16 mg/dL (7-17); Calcium 9.2 mg/dL (8.4-10.2); Carbon Dioxide 27 mmol/L (22-30); Chloride 104 mmol/L (98-107); Creatine Kinase 52 U/L (30-135); Glucose 119 mg/dL (74-99); Lipase 86 U/L (23-300); Magnesium 2.2 mg/dL (1.6-2.3); Non-African American GFR(CKD) 83 (>60 ml/min/1.73 sqM); Potassium 3.8 mmol/L (3.5-5.1); Sodium 138 mmol/L (137-145); Total Bilirubin 0.3 mg/dL (0.2-1.3); Total Protein 6.6 g/dL (6.3-8.2)
[2020-07-10] MEDS ORDERED: methylPREDNISolone SOD SUCCI 125 MG/2 ML VIAL IV STA (02:31)
[2020-07-10] MEDS ORDERED: diphenhydrAMINE 50 MG/ML 1 ML VIAL IVP STA (02:31)
[2020-07-10] MEDS ORDERED: FAMOTIDINE 20 MG/2 ML VIAL IV STA (02:31)
[2020-07-10 02:37] LABS: INR 0.9 (<1.2)
[2020-07-10 02:38] LABS: Prothrombin Time 9.5 sec (9.0-12.0)
[2020-07-10 02:39] LABS: D-Dimer 5.21 mg/L FEU (<0.60)
[2020-07-10 02:40] LABS: Partial Thromboplastin Time 21.2 sec (22.0-30.0)
--- NOTE | 2020-07-10 03:14 | CT ---
EXAM: CT Angiography Chest With Intravenous Contrast CLINICAL HISTORY: ITS.REASON CT Reason: pe TECHNIQUE: Axial computed tomographic angiography images of the chest with intravenous contrast. CTDI is 12.17 mGy and DLP is 238 mGy-cm. This CT exam was performed using one or more of the following dose reduction techniques: automated exposure control, adjustment of the mA and/or kV according to patient size, and/or use of iterative reconstruction technique. MIP reconstructed images were created and reviewed. COMPARISON: No relevant prior studies available. FINDINGS: LUNGS: There is no focal infiltrate. There is no pleural effusion or pneumothorax. The tracheobronchial tree is patent. Mild dependent atelectasis. HEART: Within normal limits. VASCULATURE: No acute pulmonary embolism. Atherosclerotic calcifications of the aorta, with coronary involvement. THYROID: Right thyroid nodule measures 1.3 cm. MEDIASTINUM + LYMPHADENOPATHY: There are no pathologically enlarged mediastinal, hilar, or axillary lymph nodes. SUPERIOR ABDOMEN: Small hiatal hernia. MUSCULOSKELETAL: Mild degenerative changes of the spine. IMPRESSION: No acute pulmonary embolism.
[2020-07-10] MEDS ORDERED: MORPHINE SULFATE 4 MG/ML SYRINGE IV PRN (03:56)
[2020-07-10] MEDS ORDERED: HEPARIN SODIUM,PORCINE 5,000 UNIT/ML 1 ML VIAL IV ONE (03:56)
[2020-07-10] MEDS ORDERED: NITROGLYCERIN SL TABS 0.4 MG TAB SUBLINGUAL PRN (03:56)
[2020-07-10] MEDS ORDERED: ASPIRIN 81 MG PO STA (03:56)
[2020-07-10] MEDS ORDERED: HEPARIN SODIUM,PORCINE 5,000 UNIT/ML 1 ML VIAL IV PRN (03:56)
[2020-07-10] MEDS ORDERED: HEPARIN SOD,PORK IN 0.45% NACL 25,000 UNIT in 0.45% NACL 1 250ML.BAG IV SCH (04:00)
[2020-07-10] MEDS ORDERED: DILTIAZEM DRIP BOLUS FROM BAG 1 MG SOLN IV ONE (04:07)
[2020-07-10] MEDS ORDERED: DILTIAZEM 125 MG in SODIUM CHLORIDE 0.9% 100 ML IV SCH (04:15)
[2020-07-10 04:38] LABS: Appearance,Urine Clear (Clear); Bilirubin,Urine Negative (Negative); Blood,Urine Negative (Negative); Color,Urine Colorless; Glucose,Urine (UA) Negative (Negative); Ketones,Urine Negative (Negative); Leukocyte Esterase,Urine Moderate (Negative); Mucus,Urine Rare /hpf; Nitrite,Urine Negative (Negative); PH, Urine 7.5 (5.0-8.0); Protein,Urine Negative (Negative); RBC,Urine <1 /hpf (0-5); Specific Gravity,Urine 1.005 (1.001-1.035); Squamous Epithelial Cell,Urine 4 /hpf (0-4); Urobilinogen,Urine <2.0 mg/dL (<2.0); WBC,Urine 8 /hpf (0-5)
[2020-07-10 06:43] VITALS: RESP 18
[2020-07-10 08:23] LABS: Mean Platelet Volume 6.6; Platelet Count 285 k/uL (150-450)
[2020-07-10 08:29] VITALS: BP 120/58; PULSE 61; TEMP 98
[2020-07-10 08:56] LABS: Cholesterol 163 mg/dL (<200); HDL Cholesterol 53 mg/dL (40-60); LDL Cholesterol,Calculated 83 mg/dL (0-99); Triglycerides 135 mg/dL (<150)
[2020-07-10] MEDS ORDERED: METOPROLOL TARTRATE 25 MG TAB PO SCH (09:00)
--- NOTE | 2020-07-10 10:07 | US ---
EXAMINATION TYPE: US venous doppler duplex LE DATE OF EXAM: 07/10/2020 9:19 AM COMPARISON: NONE CLINICAL HISTORY: elev dd, recent surgery. SIDE PERFORMED: Bilateral TECHNIQUE: The lower extremity deep venous system is examined utilizing real time linear array sonog lexie with graded compression, doppler sonography and color-flow sonography. VESSELS IMAGED: Common Femoral Vein Deep Femoral Vein Greater Saphenous Vein * Femoral Vein Popliteal Vein Small Saphenous Vein * Proximal Calf Veins (* superficial vessels) There is normal flow, compressibility, vascular waveforms. Right Leg: Negative for DVT Left Leg: Negative for DVT IMPRESSION: No evident deep venous thrombosis at or above the knees.
[2020-07-10] MEDS ORDERED: ALBUTEROL NEBULIZED 2.5 MG/3 ML INHALATION PRN (10:16)
[2020-07-10] MEDS ORDERED: PANTOPRAZOLE 40 MG/10 ML VIAL IVP SCH (10:30)
[2020-07-10] MEDS ORDERED: DOCUSATE 100 MG CAP PO SCH (10:30)
[2020-07-10] MEDS ORDERED: APIXABAN 5 MG TAB PO SCH (10:45)
--- NOTE | 2020-07-10 12:54 | CONS ---
CONSULTATION Mrs. Chanel Yeager is a 70-year-old lady with a history of hypertension and hyperlipidemia who underwent a right total knee arthroplasty on June 16. She has no documented history of any atrial fibrillation in the past. She came into the hospital last night with complaints of having some palpitations and chest discomfort. EKG revealed atrial fibrillation at a rate of about 110 beats per minute. She was on a Cardizem drip, converted to sinus rhythm and feels better. She has no chest discomfort. She is resting comfortably without symptoms. PAST MEDICAL HISTORY: Remarkable for hypertension, hyperlipidemia, and degenerative joint disease with right total knee arthroplasty earlier this month. Patient is not a smoker, does not consume caffeine excessively and has no alcohol use. MEDICATIONS: Medications at home include fish oil, glucosamine, metoprolol succinate 100 mg daily, rosuvastatin 10 mg daily, albuterol inhaler, and also some pain medications. ALLERGIES: She is allergic to ZITHROMAX, MELOXICAM, SINGULAIR, LISINOPRIL and YEAST. She is also allergic to IODINE CONTRAST. After arrival, she also had a CT angiogram performed because of a significantly elevated D-dimer of 5.[address] angiogram did not reveal any evidence of pulmonary embolism. Her venous Doppler was also unremarkable for any DVT. PHYSICAL EXAMINATION: On examination, blood pressure is 120/70, pulse rate is 62 regular. HEENT: Unremarkable. Fundus was not examined by me. NECK: Supple. No JVD. I do not hear a carotid bruit. There is no thyromegaly. HEART: Exam reveals S1, S2 with soft systolic murmur at left lower sternal border. LUNGS: Clear. ABDOMEN: Soft, nontender. Lower extremities reveal normal pulses. No edema. Central nervous system is normal. IMPRESSION: 1. New onset atrial fibrillation, back in sinus rhythm. 2. Hypertension. 3. Hyperlipidemia. 4. History of degenerative joint disease and right total knee arthroplasty 3 weeks ago. RECOMMENDATIONS: Given the CHADS score of about 3, I am recommending anticoagulation with Coumadin and continue beta macrina. We will obtain echocardiogram. She can be discharged today and I will see her in the office in 2-3 weeks. She will call me sooner for questions. I discussed my thoughts in detail with the patient and this note will go to her primary care physician, Dr. Moreira. MMODL / IJN: [id number] /
--- NOTE | 2020-07-10 14:34 | P.HPIM ---
History of Present Illness H&P Date: 07/10/20 Chief Complaint: Midsternal chest pain, palpitations History and Physical and Discharge Summary This is a 70-year-old female admitted with midsternal chest pain ,palpitations 2 days with recent right knee arthroplasty for osteoarthritis 3 weeks ago, and past medical history of hypertension and hyperlipidemia. Reports midsternal chest pain nonradiating, positive palpitations but denies shortness of breath, diaphoresis or edema. EKG reported atrial fibrillation heart rate around 110 . ER report stating A. fib with RVR , but full ER report currently unavailable at this time. Troponins negative 3. Elevated d-dimer, CTA did not report PE, incidental finding of right thyroid nodule measuring 1.3 cm. Venous Doppler reported negative for DVT. Patient was placed on a Cardizem drip and converted to sinus rhythm. Anticoagulated on heparin drip. Feels better. Currently denies chest pain, palpitations or shortness of breath. Review of Systems ROS Statement: Those systems with pertinent positive or pertinent negative responses have been documented in the HPI. ROS Other: All systems not noted in ROS Statement are negative. Past Medical History Past Medical History: Hyperlipidemia, Hypertension History of Any Multi-Drug Resistant Organisms: None Reported Past Surgical History: Section, Joint Replacement, Orthopedic Surgery, Tubal Ligation Additional Past Surgical History / Comment(s): total right knee replaced 06/16/2020 Past Anesthesia/Blood Transfusion Reactions: No Reported Reaction Past Psychological History: No Psychological Hx Reported Smoking Status: Never smoker Past Alcohol Use History: None Reported Past Drug Use History: None Reported Medications and Allergies Home Medications Medication Instructions Recorded Confirmed Type Loratadine [Claritin] 10 mg PO QAM 12/14/13 07/10/20 History [place] Oil/[place]-3 Fatty Acids 1 cap PO DAILY 12/14/13 07/10/20 History [Fish Oil 500 mg Softgel] Glucos Sul 2Kcl/MSM/Chond/C/Mn 1 cap PO DAILY 12/28/19 07/10/20 History [Glucosamine Chondroitin Cap] Metoprolol Succinate (ER) [Toprol 100 mg PO HS 12/28/19 07/10/20 History XL] Rosuvastatin Calcium 10 mg PO HS 12/28/19 07/10/20 History Vitamin C/Biotin [Hair, Skin and 1 tab PO DAILY 06/11/20 07/10/20 History Nails] Docusate [Colace] 100 mg PO DAILY #30 capsule 06/16/20 07/10/20 Rx Albuterol Sulfate [Albuterol 1 - 2 puff PO RT-Q4H PRN 06/17/20 07/10/20 History Sulfate Hfa] Apixaban [Eliquis] 5 mg PO BID #60 tab 07/10/20 Rx Allergies Allergy/AdvReac Type Severity Reaction Status Date / Time azithromycin Allergy Rash/Hives Verified 07/10/20 06:25 clarithromycin [From Biaxin] Allergy Rash/Hives Verified 07/10/20 06:25 ibuprofen Allergy Rash/Hives Verified 07/10/20 06:25 Iodinated Contrast Media Allergy SKIN FELT Verified 07/10/20 06:25 "PRICKLY" meloxicam Allergy Itching Verified 07/10/20 06:25 montelukast [From Singulair] Allergy Rash/Hives Verified 07/10/20 06:25 Sulfa (Sulfonamide Allergy Rash/Hives Verified 07/10/20 06:25 Antibiotics) lisinopril AdvReac headache/it Verified 07/10/20 06:25 alycia Yeast AdvReac CONGESTION Verified 07/10/20 06:25 Physical Exam Vitals: Vital Signs Temp Pulse Pulse Resp BP BP Pulse Ox 07/10/20 08:18 98.0 F 61 18 120/58 100 07/10/20 06:35 83 18 124/58 99 07/10/20 05:44 98.3 F 89 20 140/67 99 07/10/20 03:30 116 H 18 110/67 100 07/10/20 02:20 103 H 20 106/73 100 07/10/20 01:36 98.8 F 50 L 22 132/64 97 Intake and Output 07/09/20 07/10/20 07/10/20 22:59 06:59 14:59 Intake Total 33.917 Balance 33.917 Intake: IV 20 Invasive Line 1 10 Invasive Line 2 10 Intake, IV Titration 13.917 Amount Diltiazem 125 mg In 13.917 Sodium Chloride 0.9% 100 ml @ 5 MG/HR 5 mls/hr IV .Q24H [facility] Rx#:[id number] Other: # Voids 1 1 Weight 66.224 kg PHYSICAL EXAM: VITAL SIGNS: As above GENERAL: Sitting up in bed, no acute distress HEENT: Conjunctivae normal. eyes normal. Oral mucosa moist NECK: No JVD. No thyroid enlargement. No LNs CARDIOVASCULAR: S1, S2 regular, positive systolic murmur. RESPIRATION: Breath sounds diminished in the bases. No rhonchi or crackles. No bronchial breathing. ABDOMEN: Soft, nontender . No guarding. no masses palpable. No ascites, No hepatosplenomegaly.Bowel sounds heard. LEGS: No edema. no swelling PSYCHIATRY: Alert and oriented X3, mood and affect normal. NERVOUS SYSTEM: Cranial N 2-12 grossly normal. Moves all 4 limbs. No focal deficits. Strength and sensation grossly intact.. Skin: Warm and dry, no rash Lymphatic system. No LN neck axilla. Results CBC & Chem 7: 07/10/20 07:52 07/10/20 02:02 Labs: Abnormal Lab Results - Last 24 Hours (Table) 07/10/20 07/10/20 07/10/20 Range/Units 02:02 02:02 04:25 APTT 21.2 L (22.0-30.0) sec D-Dimer 5.21 H (<0.60) mg/L FEU Glucose 119 H (74-99) mg/dL Ur Leukocyte Esterase Moderate H (Negative) Urine WBC 8 H (0-5) /hpf Urine Mucus Rare H (None) /hpf Thrombosis Risk Factor Assmnt - Choose All That Apply Any of the Below Risk Factors Present?: Yes Each Factor Represents 1 point: Obesity (BMI >25) Other Risk Factors: Yes Each Risk Factor Represents 2 Points: Age 61-74 years Other congenital or acquired thrombophilia - If yes, enter type in comment: No Thrombosis Risk Factor Assessment Total Risk Factor Score: 3 Thrombosis Risk Factor Assessment Level: Moderate Risk Assessment and Plan Assessment: Acute chest pain, midsternal, nonradiating with palpitations. New-onset atrial fibrillation converted to sinus rhythm on Cardizem drip. Recent right total knee arthroplasty, 3 weeks ago Incidental finding of right thyroid nodule, 1.3 cm, thyroid levels ordered, results to be faxed to PCPs office, Dr. Moreira Hypertension Hyperlipidemia Plan: Continue on current medication regime ,monitoring and symptomatic treatment. Cleared by cardiology for discharge. Recommending Eliquis for anticoagulation, patient will be discharged home today in a stable condition with guarded prognosis, pending confirmation of outpatient Rx coverage for Eliquis. Thyroid levels pending with results to be faxed to Dr. Moreira office. Discharge Medication List Loratadine [Claritin] 10 mg PO QAM 12/14/13 [History] [place] Oil/[place]-3 Fatty Acids [Fish Oil 500 mg Softgel] 1 cap PO DAILY 12/14/13 [History] Glucos Sul 2Kcl/MSM/Chond/C/Mn [Glucosamine Chondroitin Cap] 1 cap PO DAILY 12/28/19 [History] Metoprolol Succinate (ER) [Toprol XL] 100 mg PO HS 12/28/19 [History] Rosuvastatin Calcium 10 mg PO HS 12/28/19 [History] Vitamin C/Biotin [Hair, Skin and Nails] 1 tab PO DAILY 06/11/20 [History] Docusate [Colace] 100 mg PO DAILY #30 capsule 06/16/20 [Rx] Albuterol Sulfate [Albuterol Sulfate Hfa] 1 - 2 puff PO RT-Q4H PRN 06/17/20 [History] Apixaban [Eliquis] 5 mg PO BID #60 tab 07/10/20 [Rx] The impression and plan of care has been dictated as directed. : I performed a history and examination of this patient, discussed the same with the dictator. I agree with the dictator's note ,documented as a scribe. Any additional findings or plans will be noted.
--- NOTE | 2020-07-10 18:09 | ECHOF ---
Referral Reason:new onset afib MEASUREMENTS -------- HEIGHT: 157.5 cm WEIGHT: 66.2 kg BP: RVIDd: 2.9 cm (< 3.3) IVSd: 1.1 cm (0.6 - 1.1) LVIDd: 3.7 cm (3.9 - 5.3) LVPWd: 1.2 cm (0.6 - 1.1) IVSs: 1.5 cm LVIDs: 2.9 cm LVPWs: 1.1 cm LA Diam: 3.6 cm (2.7 - 3.8) LAESV Index (A-L): 36.30 ml/m Ao Diam: 2.6 cm (2.0 - 3.7) AV Cusp: 1.8 cm (1.5 - 2.6) LA Diam: 3.5 cm (2.7 - 3.8) MV EXCURSION: 14.924 mm (> 18.000) MV EF SLOPE: 83 mm/s (70 - 150) EPSS: 0.4 cm RAP: 5.00 mmHg RVSP: 25.39 mmHg FINDINGS -------- Sinus rhythm. This was a technically adequate study. LV size, wall thickness and systolic function are normal, with an EF greater than 55%. The left brisa tricular size is normal. The right ventricle is normal in size. LA is moderately dilated 34-39 ml/m2 The right atrial size is normal. Aortic valve is trileaflet and is mildly thickened. The mitral valve leaflets are mildly thickened. Mild mitral regurgitation is present. The tricuspid valve appears structurally normal. Mild tricuspid regurgitation present. Right vent ricular systolic pressure is normal at < 35 mmHg. There is no pulmonic regurgitation present. The aortic root size is normal. There is no pericardial effusion. CONCLUSIONS -------- 1. LV size, wall thickness and systolic function are normal, with an EF greater than 55%. 2. LA is moderately dilated 34-39 ml/m2 3. Aortic valve is trileaflet and is mildly thickened. 4. Mild mitral regurgitation is present. 5. Mild tricuspid regurgitation present. 6. There is no pericardial effusion. INSTRUMENTATION AND CONTROL TECHNICIAN: Candice Douglas RDCS
[2020-07-11] MEDS ORDERED: LORATADINE 10 MG TAB PO SCH (09:00)
[2020-07-11] MEDS ORDERED: NON FORMULARY DRUG (Glucos Sul 2kcl/Msm/Chond/C/Mn [Glucosamine Chondroitin Cap] 1 EACH Ca PO SCH (09:00)
[2020-07-11] MEDS ORDERED: ASPIRIN 325 MG TAB PO SCH (09:00)
== END 2020-07-10 12:38 | disposition home or self-care (01) ==
LOC: EC 01:33 → 3SCARD 03:58 → INTOOBSV 03:58 → UNDODISIN 12:38
PROVIDERS: ADMIT Family Medicine; ATTEND Family Medicine
DX: I48.91 Unspecified atrial fibrillation (principal); R07.9 Chest pain, unspecified; E04.1 Nontoxic single thyroid nodule; R79.1 Abnormal coagulation profile; I10 Essential (primary) hypertension; E78.5 Hyperlipidemia, unspecified; E66.9 Obesity, unspecified; M19.90 Unspecified osteoarthritis, unspecified site; Z79.899 Other long term (current) drug therapy; Z88.1 Allergy status to other antibiotic agents; Z88.6 Allergy status to analgesic agent; Z91.041 Radiographic dye allergy status; Z88.8 Allergy status to other drugs, medicaments and biological substances; Z88.2 Allergy status to sulfonamides; Z91.02 Food additives allergy status; Z98.890 Other specified postprocedural states; Z96.60 Presence of unspecified orthopedic joint implant; Z68.26 Body mass index [BMI] 26.0-26.9, adult; Z96.651 Presence of right artificial knee joint
CPT/HCPCS: 96366; 96375 ×2; 96368; 96376; 96361; 96365; 99291; 36415; 93005; 93306; 85379; 83880; 80061; 80053; 84443; 82550; 83690; 83735; 84484; 85025; 85049; 85610; 85730; 81001; 93970; 71275; G0378; J1200; J1644 ×2; J2930; C9113; Q9967; 96374; 99285

== ENCOUNTER → 2020-07-29 | Outpatient (CLI) | payer MEDICARE ==
[2020-07-29 16:58] LABS: African American GFR (CKD) 75.1 (60.0-200.0); Anion Gap 8.8 mmol/L (4.00-12.00); BUN/Creat Ratio 15.56 Ratio (12.00-20.00); Calcium 9.9 mg/dL (8.7-10.3); Carbon Dioxide 29.2 mmol/L (21.6-31.8); Magnesium 2.2 mg/dL (1.5-2.4); Non-African American GFR(CKD) 64.8 (60.0-200.0); Potassium 4.3 mmol/L (3.5-5.5)
== END | disposition home or self-care (01) ==
LOC: LABWHC1 10:23
PROVIDERS: ATTEND Nurse Practitioner
DX: I48.0 Paroxysmal atrial fibrillation (principal)
CPT/HCPCS: 36415; 80048; 83735

== ENCOUNTER → 2022-02-09 | Outpatient (CLI) | payer MEDICARE ==
--- NOTE | 2022-02-10 07:47 | MM ---
Reason for Exam: Screening (asymptomatic). Last mammogram was performed 2 year(s) and 10 month(s) ago. Patient History: Menarche at age 13. First Full-Term at age 25. Postmenopausal. Patient used Hormonal Contraceptives for 10 years. Risk Values: Sammi 5 year model risk: 1.9%. NCI Lifetime model risk: 5.4%. Prior Study Comparison: 12/07/2016 Bilateral Screening Mammogram, [facility]. 12/17/2016 Left Diagnostic Mammogram, [facility]. 04/03/2019 Bilateral Screening Mammogram, [facility]. Tissue Density: The breast tissue is heterogeneously dense. This may lower the sensitivity of mammography. Findings: Analyzed By CAD. There is no suspicious group of microcalcifications or new suspicious mass in either breast. Overall Assessment: Negative, BI-RAD 1 Management: Screening Mammogram of both breasts in 1 year. A clinical breast exam by your physician is recommended on an annual basis and results should be correlated with mammographic findings. Electronically signed and approved by: Juan Knutson M.D. Radiologis
== END | disposition home or self-care (01) ==
LOC: RADMAMWWP 09:04
PROVIDERS: ATTEND Family Medicine
DX: Z12.31 Encounter for screening mammogram for malignant neoplasm of breast (principal); Z78.0 Asymptomatic menopausal state
CPT/HCPCS: 77063; 77067

== ENCOUNTER 2022-06-14 10:57 | Emergency (ER) | payer MEDICARE ==
[2022-06-14 11:14] VITALS: TEMP 98.9
--- NOTE | 2022-06-14 11:37 | XR ---
EXAMINATION TYPE: XR chest 2V DATE OF EXAM: 06/14/2022 COMPARISON: CTA chest July 10, 2020 HISTORY: Cough. TECHNIQUE: Frontal and lateral views of the chest are obtained. FINDINGS: There is no focal air space opacity, pleural effusion, or pneumothorax seen. The cardiac silhouette size is stable and within normal limits. The osseous structures are intact. IMPRESSION: No acute pulmonary process.
--- NOTE | 2022-06-14 11:59 | ED ---
URI HPI - General Source: patient, RN notes reviewed Mode of arrival: ambulatory Limitations: no limitations <Karthikeyan Nolen - Last Filed: 06/14/22 11:58> - General Source: patient, RN notes reviewed Mode of arrival: ambulatory - History of Present Illness MD Complaint: cough, sore throat, nasal congestion Severity scale (1-10): 8 <René Peguero - Last Filed: 06/14/22 17:25> - General Chief Complaint: Upper Respiratory Infection Stated Complaint: fever, body aches Time Seen by Provider: 06/14/22 11:52 - History of Present Illness Initial Comments: 72-year-old female presents emergency Department chief complaint of fever cough congestion bodies. Symptoms started on Tuesday. No sick contacts noted. Patient states that she has been taking some meds at home for her fever. She states she did have an episode of nausea vomiting this morning. Patient denies any chest pain. No prior lung disease including asthma or COPD. Patient denies any ear pain, does complain of sore throat mild congestion. (Karthikeyan Nolen) Nontoxic appearing 72-year-old female presents with fever, congestion and body aches since Tuesday. No known sick contacts. Not been vaccinated against coronavirus. Denies any chest pain or difficulty in breathing. (René Peguero) - Related Data Home Medications Medication Instructions Recorded Confirmed Loratadine [Claritin] 10 mg PO QAM 12/14/13 07/10/20 [place] Oil/[place]-3 Fatty Acids 1 cap PO DAILY 12/14/13 07/10/20 [Fish Oil 500 mg Softgel] Glucos Sul 2Kcl/MSM/Chond/C/Mn 1 cap PO DAILY 12/28/19 07/10/20 [Glucosamine Chondroitin Cap] Metoprolol Succinate (ER) [Toprol 100 mg PO HS 12/28/19 07/10/20 XL] Rosuvastatin Calcium 10 mg PO HS 12/28/19 07/10/20 Vitamin C/Biotin [Hair, Skin and 1 tab PO DAILY 06/11/20 07/10/20 Nails Chew] Albuterol Sulfate [Albuterol 1 - 2 puff PO RT-Q4H PRN 06/17/20 07/10/20 Sulfate Hfa] Previous Rx's Medication Instructions Recorded Docusate [Colace] 100 mg PO DAILY #30 capsule 06/16/20 Apixaban [Eliquis] 5 mg PO BID #60 tab 07/10/20 Allergies Allergy/AdvReac Type Severity Reaction Status Date / Time azithromycin Allergy Rash/Hives Verified 06/14/22 11:14 clarithromycin [From Biaxin] Allergy Rash/Hives Verified 06/14/22 11:14 ibuprofen Allergy Rash/Hives Verified 06/14/22 11:14 Iodinated Contrast Media Allergy SKIN FELT Verified 06/14/22 11:14 "PRICKLY" meloxicam Allergy Itching Verified 06/14/22 11:14 montelukast [From Singulair] Allergy Rash/Hives Verified 06/14/22 11:14 Sulfa (Sulfonamide Allergy Rash/Hives Verified 06/14/22 11:14 Antibiotics) lisinopril AdvReac headache/it Verified 06/14/22 11:14 alycia Yeast AdvReac CONGESTION Verified 06/14/22 11:14 Review of Systems ROS Other: All systems not noted in ROS Statement are negative. <Karthikeyan Nolen - Last Filed: 06/14/22 11:58> ROS Other: All systems not noted in ROS Statement are negative. <René Peguero - Last Filed: 06/14/22 17:25> ROS Statement: Those systems with pertinent positive or pertinent negative responses have been documented in the HPI. Past Medical History Past Medical History: Hyperlipidemia, Hypertension History of Any Multi-Drug Resistant Organisms: None Reported Past Surgical History: Section, Joint Replacement, Orthopedic Surgery Additional Past Surgical History / Comment(s): right knee replacement Past Anesthesia/Blood Transfusion Reactions: No Reported Reaction Past Psychological History: No Psychological Hx Reported Smoking Status: Never smoker Past Alcohol Use History: None Reported Past Drug Use History: None Reported <Karthikeyan Nolen - Last Filed: 06/14/22 11:58> General Exam Limitations: no limitations <Karthikeyan Nolen - Last Filed: 06/14/22 11:58> Limitations: no limitations General appearance: alert, in no apparent distress Head exam: Present: atraumatic Eye exam: Present: normal appearance. Absent: scleral icterus, conjunctival injection, periorbital swelling ENT exam: Present: mucous membranes moist Expanded Mouth exam: Present: tongue normal, tongue elevation. Absent: drooling, trismus, muffled voice Throat exam: negative: tonsillar erythema, tonsillomegaly, tonsillar exudate, R peritonsillar mass, L peritonsillar mass Neck exam: Present: full ROM. Absent: tenderness, meningismus, lymphadenopathy Respiratory exam: Present: normal lung sounds bilaterally. Absent: respiratory distress, accessory muscle use Cardiovascular Exam: Present: regular rate GI/Abdominal exam: Present: soft. Absent: distended, tenderness, guarding, rebound, rigid Extremities exam: Present: normal capillary refill. Absent: pedal edema, calf tenderness Neurological exam: Present: alert, oriented X3 Psychiatric exam: Present: normal affect, normal mood Skin exam: Present: warm, dry, normal color. Absent: cyanosis, diaphoretic, pallor, mottled <René Peguero - Last Filed: 06/14/22 17:25> Course Vital Signs 06/14/22 06/14/22 11:12 13:29 Temperature 98.9 F 98.9 F Pulse Rate 74 65 Respiratory 22 18 Rate Blood Pressure 148/65 171/94 O2 Sat by Pulse 99 98 Oximetry Medical Decision Making <René Peguero - Last Filed: 06/14/22 17:25> - Medical Decision Making Chest x-ray interpreted by me shows no area of consolidation. Radiologist interpretation no acute pulmonary process. Cardiac silhouette within normal limits. Patient is positive for covid, symptoms started on Tuesday. She'll be directed to follow up with her primary care doctor and increase her fluid intake vitamin C vitamin D and zinc daily. Patient is a history of hypertension, hyperlipidemia. Nonsmoker. Case discussed with Dr. Garcia. Vital signs are stable. Was pt. sent in by a medical professional or institution? @ No Did you speak to anyone other than the patient for history? @ No Did you review nursing and triage notes? @ Yes I agree Were old charts reviewed? @ No Differential Diagnosis? @ MDM Differential Fever: Pneumonia, viral URI, endocarditis, myocarditis, pericarditis, otitis, sinusitis, peritonsillar Abscess, retropharyngeal Abscess, epiglottitis, peritonitis, appendicitis, [place] cystitis, diverticulitis, hepatitis, colitis, UTI, PID, TOA, pyelonephritis, prostatitis, epididymitis, meningitis, encephalitis, pulmonary embolism, CVA, thyroid storm, pancreatitis, adrenal crisis, cavernous sinus thrombosis this is not meant to be an all-inclusive list. EKG interpreted by me (3pts min.)? @ Not applicable X-rays interpreted by me (1pt min.)? @ Yes see above CT interpreted by me (1pt min.)? @ Not applicable U/S interpreted by me (1pt. min.)? @ Not applicable What testing was considered but not performed? (CT, X-rays, U/S, labs)? Why? @ No What meds were considered but not given? Why? @ Airbags were considered however patient is positive for a viral illness, coronavirus. I did consider paxlovid however with patient ALLERGIES was offered and declined Did you discuss the management of the patient with other professionals? @ No Did you reconcile home meds? @ No Was smoking cessation discussed for >3mins.? @ Not applicable Was critical care preformed (if so, how long)? @ None Were there social determinants of health that impacted care today? How? (Homelessness, low income, unemployed, alcoholism, drug addiction, transportation, low edu. Level, literacy, decrease access to med. care, halfway, rehab)? @ . None Was there de-escalation of care discussed even if they declined? (Discuss DNR or withdrawal of care, Hospice)? @ No What co-morbidities impacted this encounter? (DM, HTN, Smoking, COPD, CAD, Cancer, CVA, Hep., AIDS, mental health diagnosis, sleep apnea, morbid obesity)? @ Hypertension Was patient admitted / discharged? @ Discharged Undiagnosed new problem with uncertain prognosis? @ [none] Drug Therapy requiring intensive monitoring for toxicity (Heparin, Nitro, Insulin, Cardizem)? @ No Were any procedures done? @ No Diagnosis/symptom? @ Coronavirus infection Acute, or Chronic, or Acute on Chronic? @ Acute Uncomplicated (without systemic symptoms) or Complicated (systemic symptoms)? @ Uncomplicated Side effects of treatment? @ [none] Exacerbation, Progression, or Severe Exacerbation] @ [no] Poses a threat to life or bodily function? @ [no] (René Peguero) - Lab Data Lab Results 06/14/22 Range/Units 11:16 Influenza Type A (PCR) Not Detected (Not Detectd) Influenza Type B (PCR) Not Detected (Not Detectd) RSV (PCR) Not Detected (Not Detectd) SARS-CoV-2 (PCR) Detected A (Not Detectd) Disposition <Karthikeyan Nolen - Last Filed: 06/14/22 11:58> Is patient prescribed a controlled substance at d/c from ED?: No Time of Disposition: 12:38 <René Peguero - Last Filed: 06/14/22 17:25> Clinical Impression: Coronavirus infection Disposition: HOME SELF-CARE Condition: Good Instructions (If sedation given, give patient instructions): Coronavirus Disease 2019 (COVID-19) Additional Instructions: Self quarantine 5 days from symptom onset and at least 24 hours without fever and resolution of symptoms before going into public. Follow-up with your primary care doctor as needed. You can take vitamin C, vitamin D and zinc daily to improve immune health. Tylenol as needed for any discomfort. Referrals: Eben Moreira DO [Primary Care Provider] - 1-2 days
[2022-06-14] MEDS ORDERED: ACETAMINOPHEN TAB 325 MG TAB PO STA (12:24)
[2022-06-14 13:32] VITALS: BP 171/94; PULSE 65; RESP 18
== END 2022-06-14 13:29 | disposition home or self-care (01) ==
LOC: EC 10:57
DX: U07.1 COVID-19 (principal); E78.5 Hyperlipidemia, unspecified; I10 Essential (primary) hypertension; Z88.0 Allergy status to penicillin; Z91.041 Radiographic dye allergy status; Z88.2 Allergy status to sulfonamides; Z91.018 Allergy to other foods; Z79.899 Other long term (current) drug therapy
CPT/HCPCS: 71046; 87636; 99284

== ENCOUNTER 2024-09-18 10:04 | Emergency (ER) | payer MEDICARE ==
[2024-09-18 10:29] VITALS: RESP 16
--- NOTE | 2024-09-18 11:23 | ED ---
Nausea/Vomiting/Diarrhea HPI - General Chief complaint: Nausea/Vomiting/Diarrhea Stated complaint: diarrhea Time Seen by Provider: 09/18/24 11:19 Source: patient, RN notes reviewed Mode of arrival: ambulatory Limitations: no limitations - History of Present Illness Initial comments: 74-year-old female presenting for diarrhea x 3 weeks. Denies abdominal pain, fevers, nausea, vomiting. States she was treated for a sinus infection with Augmentin, then switched to cefdinir as Augmentin gave her body aches. States the diarrhea started shortly after antibiotic course. Reports about 3 episodes of diarrhea daily, usually happens after meals. Reports diarrhea is watery and appears to be pieces of food. Diarrhea is nonbloody. Denies recent travel. Has not been around livestock. Abdominal surgical history includes 1 . - Related Data Home Medications Medication Instructions Recorded Confirmed Loratadine [Claritin] 10 mg PO QAM 12/14/13 07/10/20 [place] Oil/[place]-3 Fatty Acids 1 cap PO DAILY 12/14/13 07/10/20 [Fish Oil 500 mg Softgel] Glucos Sul 2Kcl/MSM/Chond/C/Mn 1 cap PO DAILY 12/28/19 07/10/20 [Glucosamine Chondroitin Cap] Metoprolol Succinate (ER) [Toprol 100 mg PO HS 12/28/19 07/10/20 XL] Rosuvastatin Calcium 10 mg PO HS 12/28/19 07/10/20 Vitamin C/Biotin [Hair, Skin and 1 tab PO DAILY 06/11/20 07/10/20 Nails Chew] Albuterol Sulfate [Albuterol 1 - 2 puff PO RT-Q4H PRN 06/17/20 07/10/20 Sulfate Hfa] Previous Rx's Medication Instructions Recorded Docusate [Colace] 100 mg PO DAILY #30 capsule 06/16/20 Apixaban [Eliquis] 5 mg PO BID #60 tab 07/10/20 Allergies Allergy/AdvReac Type Severity Reaction Status Date / Time azithromycin Allergy Rash/Hives Verified 06/14/22 11:14 clarithromycin [From Biaxin] Allergy Rash/Hives Verified 06/14/22 11:14 ibuprofen Allergy Rash/Hives Verified 06/14/22 11:14 Iodinated Contrast Media Allergy SKIN FELT Verified 06/14/22 11:14 "PRICKLY" meloxicam Allergy Itching Verified 06/14/22 11:14 montelukast [From Singulair] Allergy Rash/Hives Verified 06/14/22 11:14 Opioids - Morphine Analogues Allergy Anaphylaxis Verified 09/18/24 10:30 Sulfa (Sulfonamide Allergy Rash/Hives Verified 06/14/22 11:14 Antibiotics) lisinopril AdvReac headache/it Verified 06/14/22 11:14 alycia Yeast AdvReac CONGESTION Verified 06/14/22 11:14 Review of Systems ROS Statement: Those systems with pertinent positive or pertinent negative responses have been documented in the HPI. ROS Other: All systems not noted in ROS Statement are negative. Past Medical History Past Medical History: Hyperlipidemia, Hypertension History of Any Multi-Drug Resistant Organisms: None Reported Past Surgical History: Section, Joint Replacement, Orthopedic Surgery Additional Past Surgical History / Comment(s): right knee replacement Past Anesthesia/Blood Transfusion Reactions: No Reported Reaction Past Psychological History: No Psychological Hx Reported Smoking Status: Never smoker Past Alcohol Use History: None Reported Past Drug Use History: None Reported General Exam Limitations: no limitations General appearance: alert, in no apparent distress Head exam: Present: atraumatic, normocephalic, normal inspection GI/Abdominal exam: Present: soft, normal bowel sounds. Absent: distended, tenderness, guarding, rebound, rigid Back exam: Absent: CVA tenderness (R), CVA tenderness (L) Neurological exam: Present: alert, oriented X3 Psychiatric exam: Present: normal affect, normal mood Skin exam: Present: warm, dry, intact, normal color. Absent: rash Course Vital Signs 09/18/24 10:26 Temperature 97.8 F Pulse Rate 59 L Respiratory 16 Rate Blood Pressure 174/78 O2 Sat by Pulse 98 Oximetry Medical Decision Making - Medical Decision Making Was pt. sent in by a medical professional or institution (, PA, BUSINESS SERVICES REPRESENTATIVE, urgent care, hospital, or fci...) When possible be specific @ -No Did you speak to anyone other than the patient for history (EMS, parent, family, police, friend...)? What history was obtained from this source @ -No Did you review nursing and triage notes (agree or disagree)? Why? @ -I reviewed and agree with nursing and triage notes Were old charts reviewed (outside hosp., previous admission, EMS record, old EKG, old radiological studies, urgent care reports/EKG's, fci records)? Report findings @ -No old charts were reviewed Differential Diagnosis (chest pain, altered mental status, abdominal pain women, abdominal pain men, vaginal bleeding, weakness, fever, dyspnea, syncope, headache, dizziness, GI bleed, back pain, seizure, CVA, palpatations, mental health, musculoskeletal)? @ -Differential Appendicitis, Cholecystitis, diverticulosis, ischemic bowel, pancreatitis, hepatitis, UTI, gastroenteritis, AAA, incarcerated hernia, bowel obstruction, constipation, inflammatory bowel, hepatitis, peptic ulcer disease, splenic infarction, perforated viscus, vulvitis, ovarian torsion, PID, kidney stone, placenta abruption, this is not meant to be an all-inclusive list EKG interpreted by me (3pts min.). @ -None X-rays interpreted by me (1pt min.). @ -None done CT interpreted by me (1pt min.). @ -None done U/S interpreted by me (1pt. min.). @ -None done What testing was considered but not performed or refused? (CT, X-rays, U/S, labs)? Why? @ -None What meds were considered but not given or refused? Why? @ -None Did you discuss the management of the patient with other professionals (professionals i.e. , PA, BUSINESS SERVICES REPRESENTATIVE, lab, RT, psych nurse, addiction social worker, gas leak inspector, teacher, chief knowledge officer, corrections caseworker)? Give summary @ -No Was smoking cessation discussed for >3mins.? @ -No Was critical care preformed (if so, how long)? @ -No Were there social determinants of health that impacted care today? How? (Homelessness, low income, unemployed, alcoholism, drug addiction, transportation, low edu. Level, literacy, decrease access to med. care, [facility], rehab)? @ -No Was there de-escalation of care discussed even if they declined (Discuss DNR or withdrawal of care, Hospice)? DNR status @ -No What co-morbidities impacted this encounter? (DM, HTN, Smoking, COPD, CAD, Cancer, CVA, ARF, Chemo, Hep., AIDS, mental health diagnosis, sleep apnea, morbi d obesity)? @ -None Was patient admitted / discharged? Hospital course, mention meds given and route , prescriptions, significant lab abnormalities, going to OR and other pertinent info. @ -Discharge. 74-year-old female presenting for diarrhea x 3 weeks after antibiotic use. No abdominal pain. Patient is afebrile nontachycardic. Abdomen is soft and nonsurgical. Patient is provided with IV fluids for supportive care. Lab work including CBC, CMP, lipase, lactic, magnesium unremarkable. White blood cell count 4. Urinalysis unremarkable. C. difficile PCR ordered however patient is unable to leave sample. Discussed diagnosis of acute diarrhea secondary to antibiotic use. Advised close follow-up with PCP for further testing such as stool culture. Encouraged foods with probiotics such as yogurt. Encouraged hydration. Appropriate return precautions discussed. Case was discussed with my ED attending Dr. Maradiaga. Undiagnosed new problem with uncertain prognosis? @ -No Drug Therapy requiring intensive monitoring for toxicity (Heparin, Nitro, Insulin, Cardizem)? @ -No Were any procedures done? @ -No Diagnosis/symptom? @ -Acute diarrhea Acute, or Chronic, or Acute on Chronic? @ -Acute Uncomplicated (without systemic symptoms) or Complicated (systemic symptoms)? @ -Uncomplicated Side effects of treatment? @ -No Exacerbation, Progression, or Severe Exacerbation? @ -No Poses a threat to life or bodily function? How? (Chest pain, [place], [place], pneumonia, PE, COPD, DKA, ARF, appy, cholecystitis, CVA, Diverticulitis, Homicidal, Suicidal, threat to staff... and all critical care pts) @ -No - Lab Data Result diagrams: 09/18/24 11:24 09/18/24 11:24 Lab Results 09/18/24 09/18/24 09/18/24 Range/Units 11:24 11:24 11:24 WBC 4.65 (4.50-10.00) 10*3/uL RBC 5.07 (4.10-5.20) 10*6/uL Hgb 14.9 (12.0-15.0) g/dL Hct 42.0 (37.2-46.3) % MCV 82.8 (80.0-97.0) fL MCH 29.4 (27.0-32.0) pg MCHC 35.5 (32.0-37.0) g/dL Plt Count 194 (140-440) 10*3/uL MPV 9.5 (9.5-12.2) fL Immature Gran % (Auto) 0.4 % Neutrophils % 68.9 % Lymphocytes % 18.9 % Monocytes % 10.1 % Eosinophils % 1.1 % Basophils % 0.6 % Immature Gran # 0.02 (0.00-0.04) 10*3/uL Neutrophils # 3.20 (1.80-7.70) 10*3/uL Lymphocytes # 0.88 L (0.90-5.00) 10*3/uL Monocytes # 0.47 (0.20-1.00) 10*3/uL Eosinophils # 0.05 (0.04-0.35) 10*3/uL Basophils # 0.03 (0.00-0.10) 10*3/uL Sodium 139 (137-145) mmol/L Potassium 4.3 (3.5-5.1) mmol/L Chloride 103 (98-107) mmol/L Carbon Dioxide 31 H (22-30) mmol/L Anion Gap 5 mmol/L BUN 14 (7-17) mg/dL Creatinine 0.79 (0.52-1.04) mg/dL Est GFR (CKD-EPI)AfAm 86 (>60 ml/min/1.73 sqM) Est GFR (CKD-EPI)NonAf 75 (>60 ml/min/1.73 sqM) Glucose 107 H (74-99) mg/dL Plasma Lactic Acid [place] 0.9 (0.7-2.0) mmol/L Calcium 9.5 (8.4-10.2) mg/dL Magnesium 2.1 (1.6-2.3) mg/dL Total Bilirubin 0.6 (0.2-1.3) mg/dL AST 30 (14-36) U/L ALT 20 (4-34) U/L Alkaline Phosphatase 64 (38-126) U/L Total Protein 6.7 (6.3-8.2) g/dL Albumin 4.0 (3.5-5.0) g/dL Lipase 60 (23-300) U/L Urine Color Urine Appearance (Clear) Urine pH (5.0-8.0) Ur Specific [place] (1.001-1.035) Urine Protein (Negative) Urine Glucose (UA) (Negative) Urine Ketones (Negative) Urine Blood (Negative) Urine Nitrite (Negative) Urine Bilirubin (Negative) Urine Urobilinogen (<2.0) mg/dL Ur Leukocyte Esterase (Negative) 09/18/24 Range/Units 11:24 WBC (4.50-10.00) 10*3/uL RBC (4.10-5.20) 10*6/uL Hgb (12.0-15.0) g/dL Hct (37.2-46.3) % MCV (80.0-97.0) fL MCH (27.0-32.0) pg MCHC (32.0-37.0) g/dL Plt Count (140-440) 10*3/uL MPV (9.5-12.2) fL Immature Gran % (Auto) % Neutrophils % % Lymphocytes % % Monocytes % % Eosinophils % % Basophils % % Immature Gran # (0.00-0.04) 10*3/uL Neutrophils # (1.80-7.70) 10*3/uL Lymphocytes # (0.90-5.00) 10*3/uL Monocytes # (0.20-1.00) 10*3/uL Eosinophils # (0.04-0.35) 10*3/uL Basophils # (0.00-0.10) 10*3/uL Sodium (137-145) mmol/L Potassium (3.5-5.1) mmol/L Chloride (98-107) mmol/L Carbon Dioxide (22-30) mmol/L Anion Gap mmol/L BUN (7-17) mg/dL Creatinine (0.52-1.04) mg/dL Est GFR (CKD-EPI)AfAm (>60 ml/min/1.73 sqM) Est GFR (CKD-EPI)NonAf (>60 ml/min/1.73 sqM) Glucose (74-99) mg/dL Plasma Lactic Acid [place] (0.7-2.0) mmol/L Calcium (8.4-10.2) mg/dL Magnesium (1.6-2.3) mg/dL Total Bilirubin (0.2-1.3) mg/dL AST (14-36) U/L ALT (4-34) U/L Alkaline Phosphatase (38-126) U/L Total Protein (6.3-8.2) g/dL Albumin (3.5-5.0) g/dL Lipase (23-300) U/L Urine Color Colorless Urine Appearance Clear (Clear) Urine pH 6.5 (5.0-8.0) Ur Specific [place] 1.005 (1.001-1.035) Urine Protein Negative (Negative) Urine Glucose (UA) Negative (Negative) Urine Ketones Negative (Negative) Urine Blood Negative (Negative) Urine Nitrite Negative (Negative) Urine Bilirubin Negative (Negative) Urine Urobilinogen <2.0 (<2.0) mg/dL Ur Leukocyte Esterase Negative (Negative) Disposition Clinical Impression: Acute diarrhea Disposition: HOME SELF-CARE Condition: Stable Instructions (If sedation given, give patient instructions): Acute Diarrhea (ED) Additional Instructions: Follow-up with your PCP as discussed. Consume foods with probiotics such as yogurt. Continue to hydrate well. Follow-up with your PCP for further testing such as stool culture. Please return to the Emergency Department if symptoms worsen or any other concerns. Is patient prescribed a controlled substance at d/c from ED?: No Referrals: Eben Moreira DO [Primary Care Provider] - 1-2 days Time of Disposition: 12:47
[2024-09-18] MEDS: SODIUM CHLORIDE 0.9% 1,000 ML IV STA (11:30)
[2024-09-18 11:43] LABS: Appearance,Urine Clear (Clear); Basophils # (A) 0.03 10*3/uL (0.00-0.10); Basophils % (A) 0.6 %; Bilirubin,Urine Negative (Negative); Blood,Urine Negative (Negative); Color,Urine Colorless; Eosinophils # (A) 0.05 10*3/uL (0.04-0.35); Eosinophils % (A) 1.1 %; Glucose,Urine (UA) Negative (Negative); HGB 14.9 g/dL (12.0-15.0); Ketones,Urine Negative (Negative); Leukocyte Esterase,Urine Negative (Negative); Lymphocytes # (A) 0.88 10*3/uL (0.90-5.00); Lymphocytes % (A) 18.9 %; MCH 29.4 pg (27.0-32.0); MCHC 35.5 g/dL (32.0-37.0); MCV 82.8 fL (80.0-97.0); Mean Platelet Volume 9.5 fL (9.5-12.2); Monocytes # (A) 0.47 10*3/uL (0.20-1.00); Monocytes % (A) 10.1 %; Neutrophils % (A) 68.9 %; Nitrite,Urine Negative (Negative); PH, Urine 6.5 (5.0-8.0); Platelet Count 194 10*3/uL (140-440); Protein,Urine Negative (Negative); RBC 5.07 10*6/uL (4.10-5.20); RDW 12.6 % (11.5-14.5); Specific Gravity,Urine 1.005 (1.001-1.035); Urobilinogen,Urine <2.0 mg/dL (<2.0); WBC 4.65 10*3/uL (4.50-10.00)
[2024-09-18 12:05] LABS: ALT 20 U/L (4-34); AST 30 U/L (14-36); African American GFR (CKD) 86 (>60 ml/min/1.73 sqM); Alkaline Phosphatase 64 U/L (38-126); Anion Gap 5 mmol/L; Blood Urea Nitrogen 14 mg/dL (7-17); Calcium 9.5 mg/dL (8.4-10.2); Carbon Dioxide 31 mmol/L (22-30); Chloride 103 mmol/L (98-107); Glucose 107 mg/dL (74-99); Lipase 60 U/L (23-300); Magnesium 2.1 mg/dL (1.6-2.3); Non-African American GFR(CKD) 75 (>60 ml/min/1.73 sqM); Potassium 4.3 mmol/L (3.5-5.1); Sodium 139 mmol/L (137-145); Total Bilirubin 0.6 mg/dL (0.2-1.3); Total Protein 6.7 g/dL (6.3-8.2)
[2024-09-18 13:01] VITALS: BP 145/72; PULSE 60; TEMP 98.1
== END 2024-09-18 13:01 | disposition home or self-care (01) ==
LOC: EC 10:04
DX: R19.7 Diarrhea, unspecified (principal); Z88.1 Allergy status to other antibiotic agents; Z88.6 Allergy status to analgesic agent; Z88.2 Allergy status to sulfonamides; Z88.5 Allergy status to narcotic agent; Z88.8 Allergy status to other drugs, medicaments and biological substances; Z91.041 Radiographic dye allergy status
CPT/HCPCS: 36415; 80053; 81003; 83605; 83690; 83735; 85025; 96360; 99284